=== PATIENT | male | born 1955 | race Caucasian/White ===

== ENCOUNTER → 2017-08-29 | Outpatient (CLI) | payer OTHER | END | disposition home or self-care (01) | LOC: CFH 09:24 | PROVIDERS: ATTEND Internal Medicine Cardiovascular Disease | DX: I35.8 Other nonrheumatic aortic valve disorders (principal); I51.7 Cardiomegaly; I27.29 Other secondary pulmonary hypertension | CPT/HCPCS: 93306 ==

== ENCOUNTER 2019-08-18 06:43 | Outpatient (CLI) | payer OTHER | END 2019-08-18 23:59 | disposition home or self-care (01) | LOC: CFH 06:43 | PROVIDERS: ATTEND Internal Medicine Cardiovascular Disease | DX: I08.2 Rheumatic disorders of both aortic and tricuspid valves (principal); I27.29 Other secondary pulmonary hypertension | CPT/HCPCS: 93306 ==

== ENCOUNTER 2019-09-02 10:55 | Day surgery (SDC) | payer OTHER ==
[~2019-09-02] VITALS: Ht 180.3 cm; Wt 89.0 kg
[2019-09-02] MEDS ORDERED: DIPHENHYDRAMINE 50 MG/ML, 1ML IVPush ONE (12:00)
[2019-09-02] MEDS ORDERED: DIPHENHYDRAMINE 50 MG/ML, 1ML ONE (12:00)
[2019-09-02] MEDS ORDERED: FENTANYL PF 100 MCG/2ML ONE (12:40)
[2019-09-02] MEDS ORDERED: MIDAZOLAM 1 MG/ML, 5ML ONE (12:40)
[2019-09-02] MEDS ORDERED: LIDOCAINE 2%, 20ML ONE (12:40)
[2019-09-02] MEDS ORDERED: ASPI-515 PO (15:08)
[2019-09-02] MEDS ORDERED: HYDR500C PO ×2 (15:09→15:10)
[2019-09-02] MEDS ORDERED: TAMS-11 PO (15:10)
[2019-09-02] MEDS ORDERED: IBUP-1223 PO (15:11)
[2019-09-02] MEDS ORDERED: MONT10TA6 PO (15:11)
== END 2019-09-02 16:33 | disposition home or self-care (01) ==
LOC: CACL 10:55
PROVIDERS: ATTEND Internal Medicine Cardiovascular Disease
DX: I27.29 Other secondary pulmonary hypertension (principal); I48.92 Unspecified atrial flutter; Z79.82 Long term (current) use of aspirin; Z79.1 Long term (current) use of non-steroidal anti-inflammatories (NSAID); Z79.899 Other long term (current) drug therapy
CPT/HCPCS: 93451; 99156; 99157; C1894; J1200; J2250; J3010

== ENCOUNTER → 2020-05-24 | Outpatient (CLI) | payer OTHER ==
[~2020-05-24] MED LIST: ASPI-515 PO; HYDR500C PO; IBUP-1223 PO; MONT10TA6 PO; TAMS-11 PO
== END | disposition home or self-care (01) ==
LOC: CFH 07:44
PROVIDERS: ATTEND Internal Medicine Cardiovascular Disease
DX: I36.1 Nonrheumatic tricuspid (valve) insufficiency (principal); R06.02 Shortness of breath; I10 Essential (primary) hypertension
CPT/HCPCS: 93306

== ENCOUNTER 2021-04-04 07:54 | Day surgery (SDC) | payer OTHER ==
[~2021-04-04] VITALS: Ht 180.3 cm; Wt 84.1 kg
[~2021-04-04 07:54] MED LIST changes: -ASPI-515 PO; +ASPI-963 PO
[2021-04-04 08:17] VITALS: BP 120/65
[2021-04-04] MEDS ORDERED: MACI10TA PO (08:30)
[2021-04-04] MEDS ORDERED: DIPHENHYDRAMINE 50 MG/ML, 1ML IVPush ONE (08:30)
[2021-04-04] MEDS ORDERED: PANT20TA2 PO (08:30)
[2021-04-04] MEDS ORDERED: RIOC2.5T PO (08:30)
[2021-04-04] MEDS ORDERED: DIPHENHYDRAMINE 50 MG/ML, 1ML ONE (08:35)
[2021-04-04 08:46] LABS: BASOPHILS % (AUTO) 1 % (0-1); EOSINOPHILS % (AUTO) 1 % (1-7); LYMPHOCYTES % (AUTO) 15 % (22-44); MEAN CORPUSCULAR HEMOGLOBIN 41.1 pg (27.5-34.5); MEAN CORPUSCULAR HGB CONC 35.3 g/dL (33.2-36.2); MEAN PLATELET VOLUME 7.8 fL (7.4-10.4); MONOCYTES % (AUTO) 6 % (2-9); NEUTROPHILS % (AUTO) 77 % (42-75); PLATELET COUNT 123 x10^3/uL (130-400); RED BLOOD COUNT 3.93 x10^6/uL (4.38-5.82); RED CELL DISTRIBUTION WIDTH 13.6 % (9.4-14.8)
[2021-04-04 08:49] LABS: INTERNATIONAL NORMALIZED RATIO 1.11 (0.93-1.1); PROTHROMBIN TIME 11.8 Seconds (9.6-11.5)
[2021-04-04 08:53] LABS: ANION GAP 4 mmol/L (5-15); CALCIUM 8.8 mg/dL (8.5-10.1); CHLORIDE 109 mmol/L (98-107); CREATININE 1.26 mg/dL (0.7-1.3)
[2021-04-04] MEDS ORDERED: MIDAZOLAM 1 MG/ML, 2ML ONE (09:04)
[2021-04-04] MEDS ORDERED: FENTANYL PF 100 MCG/2ML ONE (09:05)
[2021-04-04] MEDS ORDERED: LIDOCAINE-MPF 1%, 5ML ONE (09:05)
== END 2021-04-04 11:20 | disposition home or self-care (01) ==
LOC: CACL 07:54
PROVIDERS: ATTEND Internal Medicine Cardiovascular Disease
DX: I27.20 Pulmonary hypertension, unspecified (principal); Z79.01 Long term (current) use of anticoagulants; Z79.899 Other long term (current) drug therapy
CPT/HCPCS: 36415; 80048; 83880; 85025; 85610; 93451; C1894; J1200; J2250; J3010